=== PATIENT | female | born 1965 | race Caucasian/White ===

== ENCOUNTER 2017-03-03 21:10 | Emergency (ER) | payer OTHER ==
[2017-03-03 21:38] VITALS: BP 125/78; PULSE 68; TEMP 98.1; BMI 25.7
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
[2017-03-03] MEDS ORDERED: OXYCODONE/APAP 5/325MG COMBO TABLET PO ONE (22:35)
[2017-03-03] MEDS ORDERED: OXYCODONE/APAP 5/325MG COMBO TABLET ONE (22:39)
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
== END 2017-03-04 01:54 | disposition home or self-care (01) ==
LOC: SUPCPDRO 21:10 → JER 21:10
DX: M54.5 Low back pain (principal); M54.2 Cervicalgia; V03.10XA Pedestrian on foot injured in collision with car, pick-up truck or van in traffic accident, initial encounter; Y92.414 Local residential or business street as the place of occurrence of the external cause; Y93.89 Activity, other specified
CPT/HCPCS: 72125-TC; 72131-TC; 73070-TC-LT; 84703; 99281-25